=== PATIENT | male | born 1945 | race Caucasian/White ===

== ENCOUNTER 2020-02-29 13:32 | Emergency (ER) | payer OTHER, MEDICARE ==
[~2020-02-29] VITALS: Ht 175.3 cm; Wt 86.2 kg
[~2020-02-29 13:32] MED LIST: ASA81 PO; CLOP75TA2 PO; LOSA25TA3 PO
[2020-02-29 13:50] VITALS: BP_SYST 145
--- NOTE | 2020-02-29 13:50 | NUR ---
Patient to ER bed 7 to gown for evaluation. Side rails up.
--- NOTE | 2020-02-29 13:50 | NUR ---
Pt came to ER for rectal abscess x1 week rates pain 6/10. Pt states pain is worse when he is sitting on it. He is resting in [facility], [facility], no other complaints, awaiting MD.
--- NOTE | 2020-02-29 14:05 | NUR ---
ER at bedside examining patient.
[2020-02-29] MEDS ORDERED: LIDOCAINE 1%, 20 ML MDV 20 ML ONE (14:47)
[2020-02-29 15:08] VITALS: BP_SYST 137
--- NOTE | 2020-02-29 15:09 | NUR ---
Patient given written and verbal discharge instructions and verbalizes understanding. ER MD discussed with patient the results and treatment provided. Patient in stable condition. ID arm band removed. Patient educated on pain management and to follow up with PMD. Pain Scale 0/10. Opportunity for questions provided and answered. Medication side effect fact sheet provided.
== END 2020-02-29 15:09 | disposition home or self-care (01) ==
LOC: SED 13:32
DX: K61.1 Rectal abscess (principal); I10 Essential (primary) hypertension; Z86.73 Personal history of transient ischemic attack (TIA), and cerebral infarction without residual deficits; Z86.79 Personal history of other diseases of the circulatory system; Z79.82 Long term (current) use of aspirin; Z79.899 Other long term (current) drug therapy
CPT/HCPCS: 46040; 99284; J2001

== ENCOUNTER 2020-03-01 12:30 | Emergency (ER) | payer OTHER, MEDICARE ==
[~2020-03-01] VITALS: Ht 175.3 cm; Wt 86.2 kg
--- NOTE | 2020-03-01 12:40 | NUR ---
PATIENT TO ER #[id number]
--- NOTE | 2020-03-01 12:43 | NUR ---
Pt brought by self, ambulatory, pt presents to ER for wound check on rectal area after I&D few days ago,pt afebrile, no fould odor noted, will cont to monitor.
--- NOTE | 2020-03-01 12:45 | NUR ---
Dr Foley at bedside for evaluation
[2020-03-01 13:03] VITALS: BP_SYST 115
[2020-03-01 13:08] VITALS: BP_SYST 115
--- NOTE | 2020-03-01 13:11 | NUR ---
Patient given written and verbal discharge instructions and verbalizes understanding. ER MD discussed with patient the results and treatment provided. Patient in stable condition. ID arm band removed. No Rx given. Patient educated on pain management and to follow up with PMD. Pain Scale 1/10 tolerable for patient. Opportunity for questions provided and answered. Medication side effect fact sheet provided.
== END 2020-03-01 13:11 | disposition home or self-care (01) ==
LOC: SED 12:30
DX: Z48.00 Encounter for change or removal of nonsurgical wound dressing (principal); I10 Essential (primary) hypertension; Z86.73 Personal history of transient ischemic attack (TIA), and cerebral infarction without residual deficits; Z86.79 Personal history of other diseases of the circulatory system; Z79.899 Other long term (current) drug therapy
CPT/HCPCS: 99281